=== PATIENT | male | born 1970 | race American Indian/Alaskan Native ===

== ENCOUNTER 2017-01-21 08:34 | Emergency (ER) | payer OTHER ==
[2017-01-21 09:49] LABS: Basophils % (Auto) 0.3 % (0.0-1.8); Eosinophils % (Auto) 0.6 % (0.0-4.3); Hematocrit 45.3 % (35.5-45.6); Hemoglobin 14.8 gm/dl (11.8-15.2); Mean Corpuscular HGB Conc 33 % (32-34); Mean Corpuscular Hemoglobin 28 pg (28-32); Mean Corpuscular Volume 86 fl (84-94); Platelet Count 343 K/mm3 (140-440); Red Blood Count 5.24 M/mm3 (3.65-5.03); Red Cell Distribution Width 13.5 % (13.2-15.2); White Blood Count 10.2 K/mm3 (4.5-11.0)
[2017-01-21 10:07] LABS: Anion Gap 20 mmol/L; BUN/Creatinine Ratio 16; Blood Urea Nitrogen 19 mg/dL (9-20); Calcium 8.7 mg/dL (8.4-10.2); Carbon Dioxide 27 mmol/L (22-30); Chloride 88.4 mmol/L (98-107); Glucose 447 mg/dL (75-100); Potassium 3.7 mmol/L (3.6-5.0); Sodium 132 mmol/L (137-145)
[2017-01-21 11:42] VITALS: BP 120/79
[2017-01-21 11:42] LABS: Bilirubin,Urine NEG (Negative); Blood,Urine NEG (Negative); Ketones,Urine 20 mg/dL (Negative); Leukocyte Esterase,Urine NEG (Negative); Nitrite,Urine NEG (Negative); Protein,Urine <15 mg/dL mg/dL (Negative); Urobilinogen,Urine < 2.0 mg/dL (<2.0)
[2017-01-21] MEDS ORDERED: ZOFRAN IV ONE (12:17)
--- NOTE | 2017-01-21 12:17 | Emergency Department Report ---
HPI - General Chief Complaint: Hyperglycemia Time Seen by Provider: 01/21/17 12:03 - HPI HPI: Room 18 The patient is a 46-year-old male presenting with a chief complaint of hyperglycemia. The patient states he did not take his insulin last night. The patient says when he awakened this morning he felt some soreness in the shoulders went to work. At approximately 07:00 began to feel dizzy with nausea and loss of appetite. His coworkers checked his blood sugar was found to be 580. The patient was administered 1 L normal saline and when the blood sugar was rechecked and it read "high." The patient took his insulin (Humulin in 4-5 units) at 07:50 The patient was subsequent brought to the ED for treatment. The patient states he feels a little better currently as his dizziness has improved but he still feels slightly nauseated Location: [See above] Duration: Onset at 07:00 Quality: Dizziness, nausea, hyperglycemia Severity: "High" Modifying factors: [see above] Context: [see above] Mode of transportation: [not driving] ED Past Medical Hx - Past Medical History Previous Medical History?: Yes Hx Hypertension: Yes Hx Diabetes: Yes Additional medical history: high cholesterol - Surgical History Past Surgical History?: No - Family History Family history: no significant - Social History Smoking Status: Never Smoker Substance Use Type: None (denies illicit drug use), Alcohol (occasional) ED Review of Systems ROS: Stated complaint: HIGH BLOOD SUGAR Other details as noted in HPI Eyes: denies: eye pain ENT: denies: ear pain Cardiovascular: denies: chest pain Gastrointestinal: nausea. denies: abdominal pain, vomiting Musculoskeletal: myalgia. denies: back pain Neurological: denies: headache Physical Exam - Physical Exam Vital Signs: Vital Signs 01/21/17 01/21/17 09:12 11:40 Temperature 98.4 F 98.7 F Pulse Rate 106 H 107 H Respiratory 18 18 Rate Blood Pressure 137/93 Blood Pressure 120/79 [Right] O2 Sat by Pulse 98 100 Oximetry Physical Exam: GENERAL: The patient is well-developed well-nourished male lying on stretcher not appearing to be in acute distress. [] HEENT: Normocephalic. Atraumatic. Extraocular motions are intact. Patient has moist mucous membranes. NECK: Supple. No meningitic signs are noted. There is no adenopathy noted. CHEST/LUNGS: Clear to auscultation. There is no respiratory distress noted. HEART/CARDIOVASCULAR: Regular. There is tachycardia. There is no gallop rub or murmur. ABDOMEN: Abdomen is soft, nontender. Patient has normal bowel sounds. There is no abdominal distention. SKIN: There is no rash. There is no edema. There is no diaphoresis. NEURO: The patient is awake, alert, and oriented. The patient is cooperative. The patient has normal speech MUSCULOSKELETAL:There is no evidence of acute injury. ED Course Vital Signs 01/21/17 01/21/17 09:12 11:40 Temperature 98.4 F 98.7 F Pulse Rate 106 H 107 H Respiratory 18 18 Rate Blood Pressure 137/93 Blood Pressure 120/79 [Right] O2 Sat by Pulse 98 100 Oximetry - Reevaluation(s) Reevaluation #1: 01/21/17 13:56 Accu-Chek 263 ED Medical Decision Making - Lab Data Result diagrams: 01/21/17 09:21 01/21/17 09:21 Laboratory Tests 01/21/17 01/21/17 01/21/17 09:21 09:21 09:21 WBC 10.2 RBC 5.24 H Hgb 14.8 Hct 45.3 MCV 86 MCH 28 MCHC 33 RDW 13.5 Plt Count 343 Lymph % (Auto) 18.4 [place] % (Auto) 6.2 Eos % (Auto) 0.6 Baso % (Auto) 0.3 Lymph # 1.9 [place] # 0.6 Eos # 0.1 Baso # 0.0 Seg Neutrophils % 74.5 H Seg Neutrophils # 7.6 VBG pH 7.406 Sodium 132 L Potassium 3.7 Chloride 88.4 L Carbon Dioxide 27 Anion Gap 20 BUN 19 Creatinine 1.2 Estimated GFR > 60 BUN/Creatinine Ratio 16 Glucose 447 H POC Glucose Calcium 8.7 Urine Color Urine Turbidity Urine pH Ur Specific [place] Urine Protein Urine Glucose (UA) Urine Ketones Urine Blood Urine Nitrite Urine Bilirubin Urine Urobilinogen Ur Leukocyte Esterase Urine WBC (Auto) Urine RBC (Auto) 01/21/17 01/21/17 10:21 11:50 WBC RBC Hgb Hct MCV MCH MCHC RDW Plt Count Lymph % (Auto) [place] % (Auto) Eos % (Auto) Baso % (Auto) Lymph # [place] # Eos # Baso # Seg Neutrophils % Seg Neutrophils # VBG pH Sodium Potassium Chloride Carbon Dioxide Anion Gap BUN Creatinine Estimated GFR BUN/Creatinine Ratio Glucose POC Glucose 385 H Calcium Urine Color Yellow Urine Turbidity Clear Urine pH 6.0 Ur Specific [place] 1.033 H Urine Protein <15 mg/dl Urine Glucose (UA) >=500 Urine Ketones 20 Urine Blood Neg Urine Nitrite Neg Urine Bilirubin Neg Urine Urobilinogen < 2.0 Ur Leukocyte Esterase Neg Urine WBC (Auto) 1.0 Urine RBC (Auto) 1.0 - Differential Diagnosis DKA, hyperglycemia Critical care attestation.: If time is entered above; I have spent that time in minutes in the direct care of this critically ill patient, excluding procedure time. ED Disposition Clinical Impression: Hyperglycemia Disposition: DC-01 TO HOME OR SELFCARE Is pt being admited?: No Does the pt Need Aspirin: No Condition: Stable Instructions: Diabetic Hyperglycemia (ED) Additional Instructions: Return to the emergency department immediately should you develop worsening symptoms, fever, inability to tolerate food or liquid or any other concerns. Referrals: PRIMARY CARE [Primary Care Provider] - 3-5 Days Time of Disposition: 13:56
== END 2017-01-21 14:21 | disposition home or self-care (01) ==
LOC: ED 08:34
DX: E11.65 Type 2 diabetes mellitus with hyperglycemia (principal); I10 Essential (primary) hypertension; E78.00 Pure hypercholesterolemia, unspecified
CPT/HCPCS: 36415; 80048; 81001; 82805; 82962; 85025; 96374; 96375; 99284; J2405; J1815

== ENCOUNTER 2021-09-18 10:39 | Emergency (ER) | payer OTHER ==
--- NOTE | 2021-09-18 11:05 | Consultation ---
History of Present Illness - Reason for Consult Consult date: 09/18/21 - History of Present Illness [facility] Consult Note # Demographics Consult Type: Acute Stroke Level 1 (0-4.5 hrs) Patient Location: Emergency Room First Name: pilar Last Name: jose Date of : 1970 Age: 50 Gender: Male Facility: [facility] Time of Initial Page ( Time): 09/18/2021, 10:39 Time of Return Call ( Time): 09/18/2021, 10:41 # HPI History: 50yo man who presents with onset of vision changes. Onset was at 7AM. he states that when he looks to the right, he will have drifting sensation in his eye with blurred vision. He is improving overall, but still with some vision changes Duration: improving Associated Symptoms: dizziness no new hoarseness of voice no swallowing problems # Scores Time of exam and NIHSS (): 09/18/2021, 10:56 Level of Consciousness 1a: [0] = Alert; keenly responsive LOC Questions 1b: [0] = Answers both questions correctly LOC Commands 1c: [0] = Performs both tasks correctly Best Gaze 2: [0] = Normal Visual 3: [0] = No visual loss Facial Palsy 4: [0] = Normal symmetrical movements Motor Arm Left 5a: [0] = No drift Motor Arm Right 5b: [0] = No drift Motor Leg Left 6a: [0] = No drift Motor Leg Right 6b: [0] = No drift Limb Ataxia 7: [0] = Absent Sensory 8: [0] = Normal Best Language 9: [0] = No aphasia Dysarthria 10: [0] = Normal Extinction and Inattention 11: [0] = No abnormality NIHSS Total: 0 # Data Time Head CT personally read by me (): 09/18/2021, 10:[address]: no bleed preliminarily reviewed by me, please refer to radiology read for official reading # Assessment Impression: Ischemic Stroke (Acute) Transient Ischemic Attack vs small brainstem stroke # Plan Thrombolytic/Intervention: NOT IV Thrombolysis or IA Intervention candidate Thrombolytic Exclusion (< 3 hour window): non-disabling deficit Intraarterial Exclusion: clinically consistent with small vessel disease Target Blood Pressure: SBP < 220 Labs: lipid panel Imaging: (urgency: STAT): CT Angiogram Head and CT Angiogram Neck AND call back with results if abnormal Imaging: (urgency: routine): MRI Brain without contrast Diagnostic Test: echo without bubble study Therapy/Evaluation: NPO until swallow evaluation PT/OT evaluation speech/swallow consultation Medication: aspirin 81 mg daily DVT Prophylaxis: SCD chemical DVT prophylaxis Other: LDL < 70 If patient has any neurological deterioration please call me back immediately permissive hypertension telemetry monitoring I have discussed my recommendations with the referring provider Disposition: admit Medications and Allergies Allergies Allergy/AdvReac Type Severity Reaction Status Date / Time bee venom protein (honey bee) Allergy Hives Verified 09/18/21 10:47 Penicillins Allergy Nausea Verified 09/18/21 10:47 Exam - Constitutional Vitals: Temp Pulse Resp BP Pulse Ox 95 H 204/129 99 09/18/21 10:46 09/18/21 10:46 09/18/21 10:46
--- NOTE | 2021-09-18 11:14 | Cat Scan Report ---
CT head/brain wo con INDICATION: Stroke symptoms. TECHNIQUE: Routine CT head. All CT scans at this location are performed using CT dose reduction for A MARK by means of automated exposure control. COMPARISON: None. FINDINGS: Intracranial: [place]-white matter differentiation is maintained. No intracranial hemorrhage. No extra a xial collection. No hydrocephalus. No herniation. Sinuses: Paranasal sinuses and mastoid air cells are essentially clear. Orbits: Globes are intact. Calvarium: No acute fracture. IMPRESSION: 1. No acute infarction identified. No hemorrhage. I informed Dr Naylor who is taking care of this patient via telephone at 10:09. Signer Name: Fili Powers MD Signed: 09/18/2021 11:09 AM Workstation Name: [id number]
[2021-09-18 12:24] LABS: Basophils # (Auto) 0.1 K/mm3 (0.0-0.1); Basophils % (Auto) 0.7 % (0.0-1.8); Eosinophils # (Auto) 0.4 K/mm3 (0.0-0.4); Eosinophils % (Auto) 3.2 % (0.0-4.3); Hemoglobin 14.3 gm/dl (11.8-15.2); Lymphocytes # (Auto) 4.5 K/mm3 (1.2-5.4); Lymphocytes % (Auto) 40.3 % (13.4-35.0); Mean Corpuscular HGB Conc 33 % (32-34); Mean Corpuscular Volume 88 fl (84-94); Monocytes # (Auto) 0.9 K/mm3 (0.0-0.8); Monocytes % (Auto) 8.3 % (0.0-7.3); Red Blood Count 4.89 M/mm3 (3.65-5.03); Red Cell Distribution Width 13.6 % (13.2-15.2)
[2021-09-18 12:40] LABS: Platelet Count 298 K/mm3 (140-440)
[2021-09-18 12:42] LABS: Creatine Kinase MB 5.9 ng/mL (0.0-4.0)
[2021-09-18] MEDS ORDERED: ASPIRIN 325 MG TAB PO ONE (13:40)
[2021-09-18 13:49] LABS: Alanine Aminotransferase 28 units/L (7-56); Albumin 4.6 g/dL (3.9-5); BUN/Creatinine Ratio 14; Blood Urea Nitrogen 15 mg/dL (9-20); Calcium 10.1 mg/dL (8.4-10.2); Hemolysis Index 35
[2021-09-18 14:00] LABS: INR 0.89 (0.87-1.13)
[2021-09-18 14:01] LABS: Partial Thromboplastin Time 28.1 Sec. (24.2-36.6); Thrombin Time 14.8 Sec. (15.1-19.6)
--- NOTE | 2021-09-18 14:37 | Emergency Department Report ---
ED General Adult HPI - General Chief complaint: Neuro Symptoms/Deficit Stated complaint: STROKE PUI?: No Time Seen by Provider: 09/18/21 10:42 Source: patient, EMS Mode of arrival: Stretcher Limitations: No Limitations - History of Present Illness Initial comments: PT ARRIVING FROM WORK FOR L EYE BLURRED/WEAK/DRIFITNG . LKWT 0700. DENIES OTHER SYMPTOMS. NO SLURRED SPEECH/FACIAL DROOP NOTED. PT A&OX4. BGL 160. 20G L HAND. -: Sudden, hour(s) Location: eyes Consistency: now resolved Improves with: none Worsens with: none Associated Symptoms: denies: denies other symptoms, confusion, chest pain, cough, nausea/vomiting, shortness of breath, syncope, weakness Treatments Prior to Arrival: none - Related Data Allergies Allergy/AdvReac Type Severity Reaction Status Date / Time bee venom protein (honey bee) Allergy Hives Verified 09/18/21 10:47 Penicillins Allergy Nausea Verified 09/18/21 10:47 ED Review of Systems ROS: Stated complaint: STROKE Other details as noted in HPI Constitutional: denies: chills, fever Eyes: denies: eye pain, eye discharge, vision change ENT: denies: ear pain, throat pain Respiratory: denies: cough, shortness of breath, wheezing Cardiovascular: denies: chest pain, palpitations Endocrine: no symptoms reported Gastrointestinal: denies: abdominal pain, nausea, diarrhea Genitourinary: denies: urgency, dysuria Musculoskeletal: denies: back pain, joint swelling, arthralgia Skin: denies: rash, lesions Neurological: denies: headache, weakness, paresthesias Psychiatric: denies: anxiety, depression Hematological/Lymphatic: denies: easy bleeding, easy bruising ED Past Medical Hx - Past Medical History Hx Hypertension: Yes Hx Diabetes: Yes Additional medical history: high cholesterol. SLEEP APNEA - Social History Smoking Status: Never Smoker Substance Use Type: None (denies illicit drug use), Alcohol (occasional) ED Physical Exam - General Limitations: No Limitations General appearance: alert, in no apparent distress - Head Head exam: Present: atraumatic, normocephalic - Eye Eye exam: Present: normal appearance - ENT ENT exam: Present: mucous membranes moist - Neck Neck exam: Present: normal inspection - Respiratory Respiratory exam: Present: normal lung sounds bilaterally. Absent: respiratory distress - Cardiovascular Cardiovascular Exam: Present: regular rate, normal rhythm. Absent: systolic murmur, diastolic murmur, rubs, gallop - GI/Abdominal GI/Abdominal exam: Present: soft, normal bowel sounds - Rectal Rectal exam: Present: deferred - Extremities Exam Extremities exam: Present: normal inspection - Back Exam Back exam: Present: normal inspection - Neurological Exam Neurological exam: Present: alert, oriented X3 - Psychiatric Psychiatric exam: Present: normal affect, normal mood - Skin Skin exam: Present: warm, dry, intact, normal color. Absent: rash ED Course Vital Signs 09/18/21 09/18/21 09/18/21 10:46 10:57 11:00 Pulse Rate 95 H 93 H 96 H Respiratory 10 L 13 Rate Blood Pressure 171/115 Blood Pressure 204/129 [Left] O2 Sat by Pulse 99 97 Oximetry 09/18/21 09/18/21 09/18/21 11:16 11:30 11:46 Pulse Rate 88 86 80 Respiratory 25 H 29 H 21 Rate Blood Pressure 162/112 159/105 159/105 Blood Pressure [Left] O2 Sat by Pulse 97 97 96 Oximetry 09/18/21 09/18/21 09/18/21 12:00 12:16 12:30 Pulse Rate 90 82 84 Respiratory 11 L 12 11 L Rate Blood Pressure 159/105 159/105 159/105 Blood Pressure [Left] O2 Sat by Pulse Oximetry 09/18/21 09/18/21 09/18/21 12:46 13:00 13:16 Pulse Rate 83 82 84 Respiratory 12 13 10 L Rate Blood Pressure 159/105 149/96 149/96 Blood Pressure [Left] O2 Sat by Pulse Oximetry 09/18/21 09/18/21 09/18/21 13:30 13:45 16:16 Pulse Rate 82 81 Respiratory 12 10 L Rate Blood Pressure 149/96 149/96 160/99 Blood Pressure [Left] O2 Sat by Pulse 98 Oximetry 09/18/21 09/18/21 09/18/21 16:17 18:00 18:59 Pulse Rate 76 78 Respiratory 16 Rate Blood Pressure 161/107 Blood Pressure 161/107 [Left] O2 Sat by Pulse 100 98 Oximetry ED Medical Decision Making - Lab Data Result diagrams: 09/18/21 10:56 09/18/21 10:56 - EKG Data -: EKG Interpreted by Me EKG shows normal: sinus rhythm Rate: normal - EKG Data Interpretation: nonspecific ST-T wave [place] - Radiology Data Radiology results: report reviewed, image reviewed - Medical Decision Making stroke alert on arrival , ct head negative , neuro coonsulted, NIHSS score of 0 , not canddiate for tpa , symtpoms resolved, neuro recommended admission and strokwe work up spke with susan, awiting their transfer bed Patient was managed independently by the mid level below , I was available for consult but i wasn't directly involved in the care of this patient Critical care attestation.: If time is entered above; I have spent that time in minutes in the direct care o f this critically ill patient, excluding procedure time. ED Disposition Clinical Impression: CVA (cerebral vascular accident), Blurring of vision Disposition: 02 [facility]ORT TERM [facility]OSPITAL Is pt being admited?: No Does the pt Need Aspirin: No Condition: Stable Referrals: CRISTI WADE [Other] - 3-5 Days
--- NOTE | 2021-09-18 15:07 | Cat Scan Report ---
CTA NECK WITHOUT AND WITH INTRAVENOUS CONTRAST MATERIAL CLINICAL HISTORY: stroke sx TECHNIQUE: Following acquisition of a timing bolus 0.625 mm thick contiguous axial scans were obtained from aort ic arch to the skull base during rapid bolus intravenous contrast infusion. In addition to evaluation of axial source images multiplanar reconstructions were produced and reviewed for this report. 3 giselle ne MIP reconstructions were produced and reviewed. Contrast dose report: Omnipaque 350: 100 ml, administered intravenously All CT examinations performed at this facility utilize modulated dose reduction, iterative reconstruc tion or weight-based dosing, as appropriate, to obtain a radiation dose which is as low as can reason ably be achieved. FINDINGS: Thoracic aorta:No abnormalities are identified along the course of the thoracic aorta..The origins of the great vessels have an unremarkable appearance. Brachiocephalic artery, left common carotid arter y origin and left subclavian artery all have an unremarkable appearance. Right carotid artery:No abnormalities are seen along the course of the RCCA, at the right carotid bif urcation or along the cervical portions of the [place]. Left carotid artery: No abnormalities are noted along the course of the left common carotid artery, a t the left carotid bifurcation or along the course of the cervical segments of the LICA. Posterior circulation: Left vertebral artery is dominant. There is no indication of stenosis along th e course of the T1 or T2 segments of the vertebral arteries. The degree of stenosis, if any, is determined utilizing NASCET like criteria. In this case there is no indication of hemodynamically significant stenosis at the carotid bifurcations or elsewhere. Evaluation of the nonvascular soft tissue structures reveal no abnormality. There is no indication of cervical lymphadenopathy. No abnormalities are seen along the course of the airway. Visualized porti ons of the parotid glands and the submandibular salivary glands have a normal appearance. Thyroid gla nd has a normal appearance. Evaluation of the lung apices reveals no evidence of lung nodule or infil trate. Evaluation of the cervical spine revealed no significant abnormalities. IMPRESSION: 1. No indication of hemodynamically significant stenosis at the carotid bifurcations or elsewhere. CTA HEAD WITH INTRAVENOUS CONTRAST CLINICAL HISTORY: stroke sx TECHNIQUE: 0.625 mm thick contiguous axial scans were obtained from the skull base to the skull vertex during r apid bolus administration of intravenous contrast material. Multiplanar reconstructions were produced in the coronal and sagittal planes. In addition 3 plane MIP instructions were produced and reviewed for this report. The axial source images and reconstructed images were reviewed for this report. CONTRAST DOSE REPORT: Blank: Contrast dose ml administered intravenously. All CT scans at this location are performed using CT dose reduction for ALARA by means of automated e xposure control. FINDINGS: Internal carotid arteries: Ute segments of the internal carotid arteries have remarkably heterogen eous appearance. This may relate to beam hardening artifact from the adjacent petrous bones. Cavernou s, opthalmic, clinoid and supraclinoid segments of the ICAs have an unremarkable appearance. Middle cerebral arteries:Normal and symmetrical M1 segments of the middle cerebral arteries are demon strated. No abnormalities are seen on evaluation of the insular or opercular branches. Anterior cerebral arteries: P1 segments of the anterior cerebral arteries are asymmetrical, right lar jen than left.. No abnormalities are seen along the course of the A2 segments or their visualized per icallosal branches. An anterior communicating artery is identified. Vertebral arteries: Left vertebral artery is dominant. Both vertebral arteries reach the basilar lenin ry origin. Basilar artery:Basilar artery has an unremarkable appearance. Posterior cerebral arteries:Bilaterally symmetrical posterior cerebral arteries are identified. A la rge right-sided posterior communicating artery is identified. [place] of [place]:Not intact. see above. Dural sinuses: Dural venous sinuses are well demonstrated on this exam. There is no evidence of dural sinus thrombosis. IMPRESSION: 1. No indication of intercranial stenosis or large vessel occlusion. Signer Name: Charanjit Bernal MD Signed: 09/18/2021 3:02 PM Workstation Name: [id number]
[2021-09-18 19:01] VITALS: BP 161/107
--- NOTE | 2021-09-19 18:28 | Electrocardiograph Report ---
[facility] Test Date: 2021-09-18 Test Time: 11:48:19 Pat Name: CLEMENCIA SPRAGUE Department: Room: Gender: M Sap Bpc Architect: GP : [id number] Requested By: AINSLEY OCAMPO Order Number: [id number] Reading MD: Amando Wiley Measurements Intervals [place] Rate: 83 P: 43 FL: 142 QRS: 87 QRSD: 93 T: 84 QT: 387 QTc: 455 Interpretive Statements Sinus rhythm Nonspecific T abnormalities, lateral leads No previous ECG available for comparison Electronically Signed On 09-19-2021 18:28:03 EDT by Amando Wiley
== END 2021-09-18 21:23 | disposition short-term general hospital (02) ==
LOC: ED 10:39
DX: I63.9 Cerebral infarction, unspecified (principal); H53.8 Other visual disturbances; I10 Essential (primary) hypertension; E11.9 Type 2 diabetes mellitus without complications; E78.00 Pure hypercholesterolemia, unspecified; Z88.0 Allergy status to penicillin; Z91.030 Bee allergy status; Z79.899 Other long term (current) drug therapy
CPT/HCPCS: 36415; 70450; 70496; 70498; 80053; 82550; 82553; 84484; 85025; 85610; 85670; 85730; 93005; 99285; Q9967